=== PATIENT | female | born 1965 | race African-American/Black ===

== ENCOUNTER 2017-07-14 12:52 | Inpatient (IN) | payer BC ==
[~2017-07-14] VITALS: Ht 165.1 cm; Wt 77.3 kg
--- NOTE | ~2017-07-14 | XA198 ---
[facility] A Service of [facility] & [facility] RADIOLOGY TEXT RESULTS PATIENT: YANNICK GARCÍA LOCATION: [place] [id number] : [birth year] UNIT #: [id number] AGE: [address]: Maria M Wolfe MD SEX: F ORDER DR: [id number] [facility] [address] [facility]. [place], [place] [address] [id number] I MR#: [id number] Acc #: [id number] NAME: YANNICK GARCÍA. : 1965 SEX: F STUDY DATE/TIME: 07/15/2017 7:35 UNIT: C5B ROOM: [facility] STUDY DESCRIPTION: XA Spinal Puncture Attending Physician: Maria M Wolfe M.D. Ordering Physician: Yuni Carter M.D. Primary Care Physician: Pooja Gudino M.D. MEDICAL IMAGING REPORT This report is preliminary unless electronic signature is present EXAM Fluoroscopically-guided lumbar puncture 07/15/2017 HISTORY Headache, body and fever. TECHNIQUE Skin site was selected with fluoroscopic guidance and marked, sterilely prepped and draped and locally anesthetized. A 20-gauge spinal needle was used to access the thecal sac at the L4 level. 10 mL of clear colorless CSF was obtained and sent for testing. There are no complications and the patient tolerated the procedure well. Total fluoro time 0.8 minutes, and a single fluoroscopic spot image. IMPRESSION Successful fluoroscopically-guided lumbar puncture with return of 10 mL of clear colorless CSF, sent for testing. No complication. Dictated by... Gabo Tate M.D. THIS IS AN ELECTRONICALLY VERIFIED REPORT Gabo Tate M.D. at 07/18/2017 9:02 AM TEV/pcl TD: 07/15/2017 17:28 JOB #: [id number] MEDICAL IMAGING REPORT Page 1 of 1 COPY
--- NOTE | ~2017-07-14 | CT71 ---
[facility] A Service [facility] RADIOLOGY TEXT RESULTS PATIENT: YANNICK GARCÍA LOCATION: [facility] : [birth year] UNIT #: [id number] AGE: [address]: Maria M Wolfe MD SEX: F ORDER DR: [id number] [facility] [address] [facility]. [place], [place] [address] [id number] I MR#: [id number] Acc #: [id number] NAME: YANNICK GARCÍA. : 1965 SEX: F STUDY DATE/TIME: 07/14/2017 15:20 UNIT: [facility] ROOM: [facility] STUDY DESCRIPTION: CT Head Wo Contrast Attending Physician: Yuni Carter M.D. Ordering Physician: Michelle Mccoy M.D. Primary Care Physician: Pooja Guidno M.D. MEDICAL IMAGING REPORT This report is preliminary unless electronic signature is present EXAM Head CT without. HISTORY Headache. Generalized aching since yesterday. Swelling in the neck under chin after a bug bite. COMMENT Routine noncontrast head CT is reviewed. This CT exam was performed with one or more of the following radiation dose reduction techniques: automatic exposure control, adjustment of mA and/or kV according to patient size, and iterative reconstruction. COMPARISON There is no comparison study of the brain. There is a separate CT of the neck. FINDINGS There is no displaced calvarial fracture. Mastoid air cells are clear. The visualized paranasal sinuses show partial opacification of the ethmoid air cells. There is no air fluid level in the visualized paranasal sinuses. There is no evidence for acute intracranial hemorrhage or extraaxial fluid collection. The ventricles are normal in size and configuration and the taylor-white junction is well maintained. The basilar cisterns are patent. There is no intracranial mass effect. IMPRESSION 1. Partial opacification of the ethmoid air cells without air fluid level in the visualized paranasal sinuses; otherwise, negative noncontrast head CT. [facility] A [facility] RADIOLOGY TEXT RESULTS PATIENT: YANNICK GARCÍA LOCATION: [facility] [id number] : [birth year] UNIT #: [id number] AGE: [address]: Maria M Wolfe MD SEX: F ORDER DR: Dictated by... Renetta Tinajero M.D. THIS IS AN ELECTRONICALLY VERIFIED REPORT Renetta Tinajero M.D. at 07/15/2017 8:32 AM MARVA/teresa TD: 07/14/2017 23:22 JOB #: [id number] MEDICAL IMAGING REPORT Page 1 of 1 COPY
--- NOTE | ~2017-07-14 | DS ---
Unit #: [id number] #: [id number] Patient: YANNICK GARCÍA [id number] [address] [place], [place] [address] [id number] I MR#: [id number] NAME: YANNICK GARCÍA. ROOM: 241 Age: 51 Sex: F Admission Date: 07/14/2017 : 1965 Discharge Date: 07/17/2017 Attending Physician: Maria M oWlfe M.D. Primary Care Physician: Pooja Gudino M.D. DISCHARGE SUMMARY REASON FOR ADMISSION Headache, neck cellulitis, recent mosquito bite. HISTORY OF PRESENT ILLNESS/HOSPITAL COURSE Please refer to H and P for complete details. Essentially, the patient was outside working in her yard when she began developing headache, neck stiffness, as well as visual changes. Because of her recent mosquito bite, concern for underlying West Nile encephalitis versus viral meningitis was made, therefore the patient was admitted for the same. Initially, she was placed on telemetry floor. Routine laboratory studies were ascertained. She did undergo CSF/epidural, which did reveal white blood cells of 321, protein of 86, but this also prompted a consultation to Infectious Disease Services, who after review of CSF results stated that it is likely viral meningitis versus West Nile encephalitis. Appropriate studies were obtained for West Nile and they are currently pending. At the present time and through hospital course, the patient also did complain of headache. She states that she does not have a prior history of migraines and/or headaches. She did receive Imitrex with some relief. We will give her Fioricet as well as Decadron prior to discharge. If her headache is relieved, the patient will be stable for discharge. She was instructed to follow up with her primary care physician within 3 to 5 days for her CSF results especially in regard to West Nile virus. All plans were communicated with her in detail. At the time of discharge, she is clinically stable. She may return to work in approximately 5 to 7 days if all laboratory studies returned back negative. FINAL DISCHARGE DIAGNOSES 1. Presumed viral meningitis. 2. Intractable headache. 3. Recent insect bites, questionable West Nile virus. 4. Prior history of right lower extremity deep vein thrombosis. 5. Prior history of fibrocystic breast disease. 6. Polycystic ovary syndrome. FINAL DISCHARGE MEDICATIONS Imitrex 100 mg p.o. x1 at onset of headache, repeat 30 minutes if not better, max two tablets per day. DISCHARGE CONDITION Stable. Unit #: [id number] #: [id number] Patient: YANNICK GARCÍA DISCHARGE DISPOSITION Home. Close outpatient followup recommended to the patient. Dictated by... Angela Hadley/yenni TD: 07/18/2017 16:50 JOB #: [id number] DISCHARGE SUMMARY Page 1 of 1 X Maria M Wolfe MD X DISCHARGE SUMMARY
--- NOTE | ~2017-07-14 | CT114 ---
[facility] A Service of [facility] & [facility] RADIOLOGY TEXT RESULTS PATIENT: YANNICK GARCÍA LOCATION: C2[address] 241 : [birth year] UNIT #: [id number] AGE: [address]: Maria M Wolfe MD SEX: F ORDER DR: [id number] [facility] [address] [facility] [place], [place] [address] [id number] I MR#: [id number] Acc #: [id number] NAME: YANNICK GARCÍA. : 1965 SEX: F STUDY DATE/TIME: 07/14/2017 15:33 UNIT: [facility] ROOM: 241 STUDY DESCRIPTION: CT Soft Tissue Neck W Cont Attending Physician: Maria M Wolfe M.D. Ordering Physician: Michelle Mccoy M.D. Primary Care Physician: Pooja Gudino M.D. MEDICAL IMAGING REPORT This report is preliminary unless electronic signature is present EXAM CT neck soft tissue with contrast HISTORY Headache, generalized aching since yesterday, swelling in the neck under the chin with a bug bite marked with a fish oil capsule. TECHNIQUE CT of the neck soft tissue performed in the axial plane during intravenous administration of 75 mL of Isovue-370. This is followed by sagittal and coronal reconstructed imaging. This CT exam was performed with one or more of the following radiation dose reduction techniques: automatic exposure control, adjustment of mA and/or kV according to patient size, and iterative reconstruction. COMPARISON No comparison study of the cervical spine. See separate head CT dictation. FINDINGS There is a fish oil capsule in the submental region. There may be some underlying skin thickening and tiny about 4 mm in diameter lymph node. Please correlate for clinical evidence of cellulitis. There is no drainable fluid collection or foreign body appreciated on CT scanning. The parotid glands, submandibular glands are unremarkable. A small amount of heterogeneous lower attenuation in the right lobe of the thyroid gland, about 6 mm in largest dimension. Very nonspecific. There is no significant mucosal asymmetry. There is no lymphadenopathy along jugular chains by anatomic imaging criteria. The prevertebral soft tissues are unremarkable. The patient is partially edentulous, and there is some dental metal. IMPRESSION [facility]. [facility] A Service of [facility] & [facility] RADIOLOGY TEXT RESULTS PATIENT: YANNICK GARCÍA LOCATION: [facility] 241-01 : [birth year] UNIT #: [id number] AGE: [address]: Maria M Wolfe MD SEX: F ORDER DR: 1. There is a Gel-Cap that overlies a small amount of soft tissue thickening, submental region, and a 4-mm structure in the subcutaneous fat, which is probably a small lymph node. Please correlate for any clinical evidence of cellulitis. 2. 6-mm low attenuation area in the right lobe of the thyroid gland is very nonspecific. If there is concern for thyroid disease, it could be further evaluated with thyroid ultrasound. 3. Otherwise, essentially unremarkable CT neck soft tissue. Dictated by... Renetta Tinajero M.D. THIS IS AN ELECTRONICALLY VERIFIED REPORT Renetta Tinajero M.D. at 07/19/2017 5:43 PM Eda TD: 07/19/2017 14:37 JOB #: [id number] MEDICAL IMAGING REPORT Page 1 of 1 COPY
--- NOTE | ~2017-07-14 | HP ---
Unit #: [id number] #: [id number] Patient: YANNICK GARCÍA [id number] [facility] [address] [facility]. [place], [place] [address] [id number] MR#: [id number] NAME: YANNICK GARCÍA ROOM: Age: 51 Sex: F Admission Date: 07/14/2017 : 1965 Attending Physician: Kym Muniz M.D. Primary Care Physician: Pooja Gudino M.D. HISTORY AND PHYSICAL CHIEF COMPLAINT Headache, insect bite, neck cellulitis. HISTORY OF PRESENT ILLNESS This very pleasant 51-year-old female is admitted for cellulitis of the neck and headache. The patient states that she was outside pulling weeds. She believes she was bitten by a mosquito. She developed pain in her neck. Then, last evening she developed a fairly severe headache with myalgias, low-grade temperature, nausea, and light sensitivity. She presented to this emergency department this afternoon with a low-grade temperature. She has a supple neck on exam but does complain of pain in the neck with flexion of the neck. She was bolused with two liters of saline and given a couple of doses of Dilaudid, Toradol, Zofran, 2 grams of Rocephin, IV vancomycin, and [address] scan of the head shows sinus disease. CT scan of the soft tissues of the neck shows soft tissue swelling in submental region. On examination, she does have swelling in this particular but no definite fluctuance or redness that I can see. 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 PAST MEDICAL HISTORY 1. Right leg DVT in 2011. 2. Negative cardiac catheterization in 2011 after an abnormal stress test. 3. Degenerative joint disease of the back. 4. Polycystic ovarian syndrome. 5. Fibrocystic breast disease. 6. Previous hysterectomy. 7. Bilateral tubal ligation. ALLERGIES None. HOME MEDICATIONS None. FAMILY HISTORY Coronary artery disease and diabetes mellitus. 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 She lives with her son. She smokes one-half pack per day of tobacco and seldom drinks alcohol. Unit #: [id number] #: [id number] Patient: YANNICK GARCÍA REVIEW OF SYSTEMS Notable for myalgias, headache, light sensitivity, nausea, pain in the soft tissues of the neck, previous DVT, tobacco use, fibrocystic breast disease, chronic back pain, and polycystic ovarian disease. All other systems were reviewed and are otherwise negative. PHYSICAL EXAMINATION GENERAL: A very pleasant 51-year-old female who looks to be somewhat comfortable. VITAL SIGNS: Temperature 100.2, pulse 98, respirations 18, blood pressure 131/82, and O2 saturation is 100% on room air. HEENT: Eyes PERRLA. Extraocular muscles are intact. Pharynx is benign. NECK: Supple without adenopathy or thyromegaly. There is swelling of the soft tissues in the submental region without fluctuance or redness. CHEST: Clear. CARDIAC: Normal S1 and S2 without S3, S4, or murmur. ABDOMEN: Bowel sounds are present. No hepatosplenomegaly, tenderness, or masses. EXTREMITIES: Without clubbing, cyanosis, or edema. Pedal pulses are present. No splinter hemorrhages noted over the nail beds. No rashes that I can see. NEUROLOGIC: Patient is awake, alert, and oriented. Cranial nerves are intact. She has +5 over 5 strength throughout. DIAGNOSTIC STUDIES LABORATORY: Hematocrit is 43.8 with normal white count and platelet count. Normal coags. SMA-12 is normal except for an alkaline phosphatase of 100. Normal lactic acid. Influenza swab negative. Strep screen negative. Urinalysis is negative. IMAGING: Chest x-ray shows stable mild stable mild prominence of the cardiac silhouette. Head CT shows sinus disease. CT of the soft tissues of the neck show soft tissue swelling of the submental region with a 4 mm small lymph node and a right 6 mm thyroid nodule. ASSESSMENT 1. Patient was bitten by an insect yesterday. She has some swelling of her neck, presumed cellulitis. 2. Headache and myalgias, rule out viral meningitis. 3. Incidental note of a small right thyroid nodule. PLANS 1. IV fluids and supportive treatment. 2. Obtain CPK. Blood cultures are pending. 3. Lumbar puncture under fluoro in the morning. Continue antibiotics in the form of vancomycin and Rocephin for now. The patient did receive one dose of Decadron. 4. SCDs for DVT prophylaxis. 5. Will need followup for her tiny thyroid nodule as an outpatient. 6. Further workup and consultants depending on above. 1. Dictated by Angela Martines Unit #: [id number] #: [id number] Patient: YANNICK GARCÍA TD: 07/14/2017 21:19 JOB #: [id number] HISTORY AND PHYSICAL Page 1 of 1 X Yuni Carter MD X HISTORY AND PHYSICAL
--- NOTE | ~2017-07-14 | CR72 ---
[facility] A Service of [facility] & [facility] RADIOLOGY TEXT RESULTS PATIENT: YANNICK GARCÍA LOCATION: [place] [address] : [birth year] UNIT #: [id number] AGE: [address]: Maria M Wolfe MD SEX: F ORDER DR: [id number] [facility] [address] [place], [place] [address] [id number] E MR#: [id number] Acc #: [id number] NAME: YANNICK GARCÍA. : 1965 SEX: F STUDY DATE/TIME: 07/14/2017 UNIT: [facility] ROOM: STUDY DESCRIPTION: CR Chest Single View Portable Attending Physician: Kym Muniz M.D. Ordering Physician: Michelle Mccoy M.D. Primary Care Physician: Pooja Gudino M.D. MEDICAL IMAGING REPORT This report is preliminary unless electronic signature is present EXAM Chest portable 07/14/2017 1354 hours HISTORY 51-year-old with headache, fever, nausea. History of insect bite under chin. COMPARISON 09/16/2012. FINDINGS Portable upright chest demonstrates slightly low lung volumes. Heart size is mildly prominent but unchanged. Aortic and hilar contours are normal. Lungs are clear and there are no effusions. IMPRESSION Stable mild prominence of the cardiac silhouette. No acute pulmonary or pleural findings. Dictated by... Clementina Carrera M.D. THIS IS AN ELECTRONICALLY VERIFIED REPORT Clementina Carrera M.D. at 07/15/2017 9:08 AM ABHIJIT/argenis TD: 07/14/2017 18:51 JOB #: [id number] MEDICAL IMAGING REPORT Page 1 of 1 COPY
--- NOTE | ~2017-07-14 | CO ---
Unit #: [id number] #: [id number] Patient: YANNICK GARCÍA [id number] [facility] [address] [facility] [facility]. [place], [place] [address] [id number] I MR#: [id number] NAME: YANNICK GARCÍA ROOM: 551 Age: 51 Sex: F Admission Date: 07/14/2017 : 1965 Attending Physician: Maria M Wolfe M.D. Primary Care Physician: Pooja Gudino M.D. Requesting Physician: Rosy Prasad A.P.R.N. CONSULTATION REPORT REASON FOR CONSULTATION Insect bite and rule out viral meningitis, possible cellulitis. HISTORY OF PRESENT ILLNESS Mrs. 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 She stated that this past Tuesday she came home from work and then she had decided to pull some weeds in her backyard. At one point she felt like she had been bitten by a mosquito. She currently lives in the [facility]. She had gone to work the very next day and had felt okay and had gotten off work that morning, morning, and then she started to feel a low grade temperature around 99.7 as well as nausea, some light sensitivity and headache. She was brought into the ER by her daughter. She had a CT scan of her neck that was unremarkable, did show some paranasal sinus disease. She had a lumbar puncture that was done today where white blood cells were 279 in CSF, red blood cells 46, neutrophils 9, lymphs 83 and tube #4 for CS fluid white blood cells were 321, red blood cells 23, neutrophils 6 and lymphs 92. The glucose in CS fluid was 70 and protein was 86. The CS fluid culture currently with no growth, showing many lymphs on the Gram stain. Crypto was checked which was negative. She has been started on IV vancomycin as well as Rocephin q.12 h. At this point she is up and walking around the room, cleaning herself, going to the bathroom. During examination she is nontoxic appearing and sitting at the side of the bed. She does complain of headache which is resolving if she stays on her pain medication. Otherwise she is slowly starting to feel better. She had blood cultures 2/2 that were drawn which are currently no growth to date; also had a strep screen which is negative as well. PAST MEDICAL HISTORY She had right leg DVT in 2012, negative cardiac cath in 2012, degenerative joint disease, polycystic ovarian disease, fibrocystic breast disease, previous hysterectomy and bilateral tubal ligation. ALLERGIES She denies any allergies. CURRENT MEDICATIONS Reviewed, patient is currently on vancomycin and Rocephin. FAMILY HISTORY Unit #: [id number] #: [id number] Patient: YANNICK GARCÍA Family history is noncontributory. 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 She lives with her son and she is a current smoker with occasional alcohol use. REVIEW OF SYSTEMS Mainly all negative except for those stated in the HPI which include headache, light sensitivity, nausea and fatigue as well as some neck stiffness which has improved and, as well as, some swelling on her left arm as well as her chin. PHYSICAL EXAMINATION GENERAL: She is a pleasant 51-year-old female who is in no apparent distress, sitting up at the side of the bed, very talkative and conversing. VITAL SIGNS: Currently temperature is 98.4, heart rate 77, respirations 16, blood pressure is 101/55. HEENT: Normocephalic. Eyes PERRLA. Trace erythema and edema on the chin area. NECL: Neck is supple. CHEST: Chest is clear. CARDIAC: Regular rate. ABDOMEN: Soft, nontender and positive bowel sounds. EXTREMITIES: Clean, dry and intact. Resolving erythema and edema on left arm. NEUROLOGICAL: Awake and oriented. Moving around. MUSCULOSKELETAL: Moves all equal range of motion. DIAGNOSTIC STUDIES IMAGING: CT of head with partial opacification of the ethmoid air cells without air fluid level in the visualized paranasal sinus, otherwise negative. Current chest x-ray stable mild prominence of the cardiac silhouette, no acute pulmonary or pleural findings. LABORATORY: Glucose is 126, BUN is 89, creatinine 0.7, GFR is 117, sodium is 137, chloride is 107, CO2 is 23, AST 26, ALT is 34, alkaline phosphatase 100, CK is 197, white count is 6.7, hemoglobin is 12.2, platelets 181. CS fluid tube #4 with clear appearance, white blood cells 321, red blood cells 23, neutrophils of 6 and lymph 92. Additional CS fluid with white blood cells of 279, red blood cells 46, lymphs 83. glucose of 70, CSF protein was 86, crypto serum negative. ASSESSMENT A 51-year-old -[place] female who was bitten by mosquitoes this past with complaints of headache, LP most likely suggestive of a viral type of meningitis: At this time will discontinue vancomycin as no MRSA is isolated. Will continue Rocephin for now and follow up on the CSF culture. Will send CS fluid as well as blood for West Nile IVM. Apparently at this time patient is nontoxic appearing and doing well. Will follow up on further cultures and patient will be seen by Dr. Onofre later today and further recommendations will come from him. Thank you for the consultation. Unit #: [id number] #: [id number] Patient: YANNICK GARCÍA Iliana Dictated by... Jeri Adorno APRN for Angela Herr/joana TD: 07/15/2017 15:09 JOB #: [id number] CONSULTATION REPORT Page 1 of 1 X X CONSULTATION REPORT
[~2017-07-14 12:52] MED LIST: ASPIRIN81 M1 PO; COLACE PO; COUMADIN5 MG PO; LOVENOX80 MG/0.8 SUBQ; METAMUCIL1 PKT PO; PERCOCET 51 UDTAB 5/ PO
[2017-07-14 14:15] LABS: BASOPHIL% 0.6 % (0-2.5); EOSINOPHIL% 0.2 % (0.0-7.0); HEMATOCRIT 43.8 % (35.0-45.0); HEMOGLOBIN 14.7 gm/dL (12.0-16.0); LYMPHOCYTE% 24.1 % (17.0-45.0); MEAN CELL VOLUME 82.6 FL (83-96); MEAN CORPUSCULAR HEMOGLOBIN 27.7 PG (28-34); MEAN CORPUSCULAR HGB CONC 33.6 g/dL (30-36); MEAN PLATELET VOLUME 9.9 FL (6.5-11.5); MONOCYTE# 0.5 X10e3 (0-1.0); MONOCYTE% 5.8 % (3.0-12.0); NEUTROPHIL# 5.6 X10e3 (1.5-7.1); NEUTROPHIL% 69.3 % (40-75); PLATELET COUNT 199 X10e3 (140-420); RED CELL DISTRIBUTION WIDTH 13.7 % (11.0-15.5); WHITE BLOOD COUNT 8.1 X10e3 (4.0-10.5)
[2017-07-14 14:23] LABS: PARTIAL THROMBOPLASTIN TIME 23.8 SECONDS (23.5-31.3); PROTHROMBIN TIME (PATIENT) 10.7 SECONDS (10.0-11.7)
[2017-07-14 14:32] LABS: DIFF IND NO
[2017-07-14 14:33] LABS: ALBUMIN SERUM 4.6 g/dL (3.5-5.0); BILIRUBIN, DIRECT 0.1 mg/dL (0.0-0.2); BILIRUBIN,INDIRECT 0.6 mg/dL (0.0-0.9); BILIRUBIN,TOTAL 0.7 mg/dL (0.2-2.0); BUN/CREATININE RATIO 12.5; CALCIUM SERUM 9.9 mg/dL (8.4-10.2); CREATININE SERUM 0.8 mg/dL (0.6-1.4); GLOM FILT RATE Estimated 99.7 mL/min (>60); POTASSIUM 3.6 mmol/L (3.5-5.1)
[2017-07-14 15:45] LABS: URINE SOURCE CLEAN CATCH
[2017-07-14 15:54] LABS: URINE APPEARANCE CLEAR; URINE BILIRUBIN NEG (NEG); URINE BLOOD NEG (NEG); URINE COLOR YELLOW; URINE GLUCOSE NEG (NEG); URINE KETONE 1+ (NEG); URINE LEUKOCYTE ESTERASE NEG (NEG); URINE NITRATE NEG (NEG); URINE PH 7.5 (5-8); URINE PROTEIN NEG (NEG); URINE SPECIFIC GRAVITY 1.012 (1.003-1.035); URINE UROBILINOGEN 0.2 MG/DL (NEG)
[2017-07-14 16:08] LABS: CULTURE INDICATED? NO
[2017-07-14 16:29] LABS: INFLUENZA A NEG (NEG); INFLUENZA B NEG (NEG)
[2017-07-15 06:43] LABS: BASOPHIL% 0.4 % (0-2.5); HEMATOCRIT 38.2 % (35.0-45.0); LYMPHOCYTE# 1.7 X10e3 (1.0-3.5); MEAN CELL VOLUME 84.7 FL (83-96); MEAN CORPUSCULAR HGB CONC 31.9 g/dL (30-36); MEAN PLATELET VOLUME 10.1 FL (6.5-11.5); MONOCYTE# 0.5 X10e3 (0-1.0); MONOCYTE% 6.9 % (3.0-12.0); NEUTROPHIL# 4.5 X10e3 (1.5-7.1); NEUTROPHIL% 66.7 % (40-75); PLATELET COUNT 181 X10e3 (140-420); RED BLOOD COUNT 4.51 X10e (3.90-5.30); RED CELL DISTRIBUTION WIDTH 13.8 % (11.0-15.5); WHITE BLOOD COUNT 6.7 X10e3 (4.0-10.5)
[2017-07-15 06:44] LABS: DIFF IND NO; HEMOGLOBIN 12.2 gm/dL (12.0-16.0)
[2017-07-15 07:13] LABS: BUN/CREATININE RATIO 12.85; CALCIUM SERUM 8.4 mg/dL (8.4-10.2); CREATININE SERUM 0.7 mg/dL (0.6-1.4); GLOM FILT RATE Estimated 117.1 mL/min (>60); POTASSIUM 3.8 mmol/L (3.5-5.1)
[2017-07-15 09:41] LABS: GLUCOSE-CSF 70 mg/dL (50-80); PROTEIN-CSF 86 mg/dL (15-45)
[2017-07-15 10:52] LABS: CSF APPEARANCE CLEAR (CLEAR); CSF TUBE NUMBER 1; CSF XANTHACHROMIC NO
[2017-07-15 10:53] LABS: CSF WBC 279 CMM (0-8)
[2017-07-15 10:57] LABS: CSF RBC 46 CMM ([, 0])
[2017-07-15 11:38] LABS: CSF APPEARANCE CLEAR (CLEAR); CSF TUBE NUMBER 4; CSF XANTHACHROMIC NO
[2017-07-15 11:39] LABS: CSF WBC 321 CMM (0-8)
[2017-07-15 11:40] LABS: CSF RBC 23 CMM ([, 0])
[2017-07-15 12:00] LABS: CSF NEUTROPHIL 9 %
[2017-07-15 12:01] LABS: CSF LYMPHOCYTE 83 %
[2017-07-15 12:02] LABS: CSF MONOCYTE 8 %
[2017-07-15 12:04] LABS: CSF LYMPHOCYTE 92 %; CSF MONOCYTE 2 %; CSF NEUTROPHIL 6 %
[2017-07-15 13:15] LABS: CRYPTO AG CSF/SERUM NEG (NEG); CRYPTO AG SOURCE CSF
[2017-07-16 06:23] LABS: BASOPHIL% 0.6 % (0-2.5); DIFF IND YES; EOSINOPHIL# 0.1 X10e3 (0-0.7); EOSINOPHIL% 1.4 % (0.0-7.0); HEMATOCRIT 35.6 % (35.0-45.0); HEMOGLOBIN 11.3 gm/dL (12.0-16.0); LYMPHOCYTE# 3.3 X10e3 (1.0-3.5); LYMPHOCYTE% 61.7 % (17.0-45.0); MEAN CELL VOLUME 85.5 FL (83-96); MEAN CORPUSCULAR HEMOGLOBIN 27.2 PG (28-34); MEAN CORPUSCULAR HGB CONC 31.8 g/dL (30-36); MEAN PLATELET VOLUME 10.2 FL (6.5-11.5); MONOCYTE# 0.3 X10e3 (0-1.0); MONOCYTE% 6.4 % (3.0-12.0); NEUTROPHIL# 1.6 X10e3 (1.5-7.1); NEUTROPHIL% 29.9 % (40-75); PLATELET COUNT 118 X10e3 (140-420); RED BLOOD COUNT 4.16 X10e (3.90-5.30); RED CELL DISTRIBUTION WIDTH 13.7 % (11.0-15.5); WHITE BLOOD COUNT 5.4 X10e3 (4.0-10.5)
[2017-07-16 06:38] LABS: CALCIUM SERUM 8.3 mg/dL (8.4-10.2); CREATININE SERUM 0.9 mg/dL (0.6-1.4); GLOM FILT RATE Estimated 86.5 mL/min (>60); MAGNESIUM 1.7 mg/dL (1.6-3.0)
[2017-07-16 07:28] LABS: RBC NORMAL YES
[2017-07-16 07:32] LABS: PLATELET ESTIMATE DECREASED (NORMAL)
[2017-07-17] MEDS ORDERED: IMITREX PO (15:55)
[2017-07-17] MEDS ORDERED: ACETAMINOPHEN PO (15:56)
[2017-07-17 19:36] LABS: HSV 1 DNA Not Detected (Not Detected); HSV 2 DNA Detected (Not Detected)
[2017-07-20 19:59] LABS: WEST NILE VIRUS IGG <1.30 index (<1.30); WEST NILE VIRUS IGM <0.90 index (<0.90)
== END 2017-07-17 18:07 | disposition home or self-care (01) | DRG 75 ==
LOC: CED 12:52 → C5B 21:00 → CEDOF 21:00 → CED 21:08 → CEDOF 22:40 → C5B 22:40 → C2A 07-16 16:37
PROVIDERS: Emergency Medicine; Family Medicine; Internal Medicine
PROC: 009U3ZX Drainage of Spinal Canal, Percutaneous Approach, Diagnostic (ICD-10-PCS; principal; 2017-07-15)
PROC: B01BYZZ Fluoroscopy of Spinal Cord using Other Contrast (ICD-10-PCS; 2017-07-15)
DX: A87.9 Viral meningitis, unspecified (principal); L03.221 Cellulitis of neck; I10 Essential (primary) hypertension; S10.96XA Insect bite of unspecified part of neck, initial encounter; Z86.718 Personal history of other venous thrombosis and embolism; N60.19 Diffuse cystic mastopathy of unspecified breast; E28.2 Polycystic ovarian syndrome; Z90.710 Acquired absence of both cervix and uterus; Z98.51 Tubal ligation status; E78.5 Hyperlipidemia, unspecified; Z82.49 Family history of ischemic heart disease and other diseases of the circulatory system; Z83.3 Family history of diabetes mellitus; E04.1 Nontoxic single thyroid nodule; F17.200 Nicotine dependence, unspecified, uncomplicated; H53.149 Visual discomfort, unspecified; G43.909 Migraine, unspecified, not intractable, without status migrainosus
CPT/HCPCS: 36415; 70450; 70491; 71010; 77003; 80048; 80076; 81003; 82550; 82945; 83605; 83735; 84157; 84703; 85025; 85610; 85730; 86651; 86652; 86653; 86654; 86695; 86727; 86735; 86788; 86789; 86790; 87040; 87070; 87205; 87529; 87651; 87804; 87899; 89051; 94760; 96361; 96365; 96366; 96367; 96375; 96376; 99285; J0696; J1100; J1170; J1885; J2405; J3370; Q9967